=== PATIENT | female | born 1930 | race Caucasian/White ===

== ENCOUNTER 2020-10-09 10:41 | Emergency (ER) | payer OTHER | END 2020-10-09 11:41 | disposition home or self-care (01) | LOC: ER1 10:41 | DX: S40.811A Abrasion of right upper arm, initial encounter (principal); E78.5 Hyperlipidemia, unspecified; E11.9 Type 2 diabetes mellitus without complications; I11.9 Hypertensive heart disease without heart failure; Z88.0 Allergy status to penicillin; V49.50XA Passenger injured in collision with unspecified motor vehicles in traffic accident, initial encounter; Y92.410 Unspecified street and highway as the place of occurrence of the external cause | CPT/HCPCS: 99283 ==

== ENCOUNTER → 2021-06-23 | Outpatient (CLI) | payer OTHER | LOC: KOH-I 15:38 | DX: M54.2 Cervicalgia (principal); M47.812 Spondylosis without myelopathy or radiculopathy, cervical region | CPT/HCPCS: 72040 ==